=== PATIENT | female | born 1985 | race Caucasian/White ===

== ENCOUNTER 2016-10-22 20:43 | Emergency (ER) | payer OTHER ==
[~2016-10-22] VITALS: Ht 154.9 cm; Wt 56.7 kg
[~2016-10-22 20:43] MED LIST: AMOXIL500 MG PO; BACTRIM DS 8001 TAB PO; BENTYL 20 MG TA20 MG PO; CICLODAN90 GM TOP; CIPROFLOXACIN500 MG PO; CITRATE OF1.75 GM/31 PO; CLEOCIN HCL300 MG PO; CYCLOBENZAPRINE10 M1 PO; CYCLOBENZAPRINE5 M2 PO; DEPAKOTE ER250 M1 PO; DIVALPROEX SOD250 M1 PO; DOLOBID500 MG PO; DULCOLAX5 MG PO; FLEXERIL10 MG PO; FLUOXETINE10 MG PO; IBUPROFEN600 MG PO; MEDROL4 MG PO; MELATONIN5 M2 PO; MINIVELLE TOP; MOBIC 15MG15 MG PO; NEURONTIN300 M1 PO; NORETHINDRONE AC5 MG PO; OLANZAPINE5 MG PO; OXYCODONE HCL10 M2 PO; OXYCODONE HCL15 MG PO; OXYCODONE HCL5 M1 PO; OXYCODONE HCL5 M2 PO; OXYCODONE5 M1 PO; OXYCODONE5 MG PO; PERCOCET 325 MG1 TA2 PO; PERCOCET 5-3251 EACH PO; PRILOSEC OTC20 M1 PO; PROAIR HFA8.5 GM INH; REGLAN10 MG PO; TRAMADOL HCL50 M1 PO; ULTRACET 325 MG1 TAB PO; ULTRAM(MONOGRAP50 MG PO; VITAMIN D50000 IU PO; VIVELLE-DOT1 EAC2 TOP; ZOFRAN 4 MG TABL4 MG PO; ZOFRAN ODT4 M1 SL; ZOFRAN ODT4 MG PO; ZOFRAN4 M1 PO; ZOFRAN4 M1 SL
[2016-10-22 21:24] LABS: ABSOLUTE BASOPHIL COUNT 0.1 /CUMM (0.0-0.2); ABSOLUTE EOSINOPHIL COUNT 0.3 /CUMM (0.0-0.7); ABSOLUTE GRANULOCYTE CT 4.8 /CUMM (1.4-6.5); ABSOLUTE LYMPH COUNT 5.7 /CUMM (1.2-3.4); ABSOLUTE MONOCYTE COUNT 0.6 /CUMM (0.10-0.60); BASOPHIL % 0.9 % (0.0-2.0); EOSINOPHIL % 2.7 % (0-5); GRANULOCYTE % 41.3 % (42.2-75.2); HEMATOCRIT 44.9 % (37-47); MEAN CORPUSCULAR HGB 29.4 PG (27.0-31.0); MEAN CORPUSCULAR HGB CONC 33.4 G/DL (33.0-37.0); MEAN CORPUSCULAR VOLUME 87.9 FL (81.0-99.0); MEAN PLATELET VOLUME 7.9 FL (7.4-10.4); PLATELET COUNT 316 /CUMM (130-400); RBC DISTRIBUTION WIDTH 13.9 % (11.5-14.5); RED BLOOD CELL CT 5.11 /CUMM (4.20-5.40); WHITE BLOOD CELL COUNT 11.5 /CUMM (4.8-10.8)
--- NOTE | 2016-10-23 00:09 | ED GI/GU/ABDOMINAL COMPLAINT ---
History of Present Illness General Chief Complaint: General Adult Stated Complaint: RIGHT SIDE PAIN THAT RADIATES TO BACK PER PT Source: patient Exam Limitations: no limitations Vital Signs & Intake/Output Vital Signs & Intake/Output Vital Signs Date Time Temp Pulse Resp B/P Pulse O2 O2 Flow FiO2 Ox Delivery Rate 10/23 0332 97.2 68 18 104/56 98 Room Air 10/22 2103 97.0 71 18 101/70 98 Room Air ED Intake and Output 10/23 0000 10/22 1200 Intake Total Output Total Balance Patient 125 lb Weight Allergies Coded Allergies: amoxicillin (Severe, FACIAL SWELLING 05/03/16) acetaminophen (Intermediate, VOMITING 05/03/16) hydrocodone (From Vicodin) (Severe, HOMICIDAL 05/03/16) quetiapine (From Seroquel) (Severe, HALLUCINATIONS POSITIVE SI 05/03/16) ibuprofen (VOMITING 05/03/16) Uncoded Allergies: ONION EXTRACT (Severe, ANAPHLACTIC SHOCK 12/23/15) UNKNOWN CONTROL (Severe, HIVES 06/02/12) Reconcile Medications Albuterol Sulfate (Proair Hfa) 8.5 GM HFA.AER.AD 2 PUFF INH Q4-6 PRN ASTHMA Divalproex Sodium (Depakote ER) 250 MG TAB.ER.24H 1 TAB PO TID SEIZURES/MENTAL HEALTH (Reported) Estradiol (Vivelle-Dot) 1 EACH PATCH.TDSW 1 PATCH TOP 2XW HRT (Reported) Gabapentin (Neurontin) 300 MG CAPSULE 1 CAP PO BID SEIZURES/MENTAL HEALTH ( Reported) Omeprazole Magnesium (Prilosec Otc) 20 MG TABLET.DR 1 TAB PO DAILY STOMACH UPSET Ondansetron (Zofran Odt) 4 MG TAB.RAPDIS 1 TAB SL TID PRN NAUSEA Oxycodone HCl 5 MG TABLET 1 TAB PO BIDP PRN pain Oxycodone HCl 5 MG TABLET 1-2 TAB PO Q6P PRN pain Oxycodone HCl 5 MG TABLET 1-2 TAB PO TID PRN PAIN TEN...[id number] Triage Note: PT TO ED FOR EXACERBATION OF CHRONIC ABD PAIN, REPORTING WORSENING RLQ ABD PAIN THAT BEGAN "A FEW HOURS AGO", REPORTING NAUSEA WELL. Triage Nurses Notes Reviewed? yes ? n Is pt currently ? No Duration: hour(s): Timing: single episode today Quality/Severity: cramping Location: right lower quadrant, right flank pain Radiation: flank Activities at Onset: none Modifying Factors: Worsens With: movement, palpation. Associated Symptoms: abdominal pain, back pain HPI: 31 yo woman h/o endometriosis presents with right back pain and right lower quadrant pain that began this afternoon. She notes no dysuria, vaginal bleeding, hematuria. She has mild nausea, but no vomiting or diarrhea. She notes that she has been trying to get into a pain management clinic for her endometriosis. She is otherwise well. Past History Travel History Traveled to [place] past 21 day No Medical History Any Pertinent Medical History? 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 No Review of Systems Review of Systems Constitutional: Reports: no symptoms. EENTM: Reports: no symptoms. Respiratory: Reports: no symptoms. Cardiovascular: Reports: no symptoms. GI: Reports: no symptoms. Genitourinary: Reports: no symptoms. Musculoskeletal: Reports: no symptoms. Skin: Reports: no symptoms. Neurological/Psychological: Reports: no symptoms. Hematologic/Endocrine: Reports: no symptoms. Immunologic/Allergic: Reports: no symptoms. All Other Systems: Reviewed and Negative Physical Exam Physical Exam General Appearance: well developed/nourished, mild distress Head: atraumatic, normal appearance Eyes: Bilateral: normal appearance. Ears, Nose, Throat, Mouth: hearing grossly normal Neck: normal inspection, supple, full range of motion Respiratory: normal breath sounds, chest non-tender, no respiratory distress, quiet respiration, lungs clear Cardiovascular: regular rate/rhythm Gastrointestinal: normal bowel sounds, soft, moderate rlq tenderness to palpation. no rebound. no guarding. Back: normal inspection Extremities: normal range of motion Neurologic/Psych: no motor/sensory deficits, awake, alert, oriented x 3 Skin: intact, normal color, warm/dry Core Measures ACS in differential dx? No Severe Sepsis Present: No Septic Shock Present: No Progress Differential Diagnosis: uti vs kidney stones vs other. Plan of Care: Orders Procedure Date/time Status URINALYSIS 10/22 2046 Complete LIPASE 10/22 2046 Complete HEPATIC FUNCTION PANEL 10/22 2046 Complete HUMAN BETA HCG SCREEN 10/22 2046 Complete CBC WITHOUT DIFFERENTIAL 10/22 2046 Complete BASIC METABOLIC PANEL 10/22 2046 Complete AMYLASE 10/22 2046 Complete Laboratory Tests 10/22/162106: Anion Gap 13, Estimated GFR > 60, BUN/Creatinine Ratio 5.0 L, Glucose 80, Calcium 9.6, Total Bilirubin 0.4, Direct Bilirubin 0.4, AST 15, ALT 16, Alkaline Phosphatase 62, Total Protein 7.6, Albumin 4.6, Amylase 75, Lipase 42, Total Beta HCG NEGATIVE, CBC w Diff NO MAN DIFF REQ, RBC 5.11, MCV 87.9, MCH 29.4, RDW 13.9, MPV 7.9, Gran % 41.3 L, Lymphocytes % 49.7, Monocytes % 5.4, Eosinophils % 2.7, Basophils % 0.9, Absolute Granulocytes 4.8, Absolute Lymphocytes 5.7 H, Absolute Monocytes 0.6, Absolute Eosinophils 0.3, Absolute Basophils 0.1, PUBS MCHC 33.4, Urine Color YEL, Urine Clarity CLEAR, Urine pH 6.0, Ur Specific [place] <= 1.005, Urine Protein NEG, Urine Ketones NEG, Urine Nitrite NEG, Urine Bilirubin NEG, Urine Urobilinogen 0.2, Ur Leukocyte Esterase TRACE H, Ur Microscopic SEDIMENT EXAMINED, Urine WBC 3-5 H, Ur Epithelial Cells RARE, Urine Hemoglobin NEG, Urine Glucose NEG Diagnostic Imaging: Viewed by Me: CT Scan. Discussed w/RAD: CT Scan. Radiology Impression: ABD/PELVIC CT... NO ACUTE DISEASE Initial ED EKG: none Comments: PATIENT: TANJA AMEZCUA PRESENT AGE: 31 PATIENT ACCOUNT NO: [id number] : 83 LOCATION: [facility] ORDERING PHYSICIAN: HERBERTH SELF MD SERVICE DATE: 10/23/16 EXAM TYPE: CAT - CT ABD & PELVIS W/O IV CONTRAS EXAMINATION: CT ABDOMEN AND PELVIS WITHOUT CONTRAST CLINICAL INFORMATION: Right lower quadrant pain. COMPARISON: 09/22/2016 TECHNIQUE: Multidetector volumetric imaging was performed from the superior aspect of the liver through the pubic symphysis. Sagittal and coronal reformatted images were obtained on the technologist's workstation. DLP: 274.5 mGy-cm. FINDINGS: LUNG BASES: The visualized lung bases are unremarkable. LIVER, GALLBLADDER, AND BILIARY TREE: The liver is normal in size, shape, and attenuation. No focal hepatic lesion or biliary ductal dilatation is present. Gallbladder is collapsed and unremarkable. PANCREAS: Unremarkable. SPLEEN: Unremarkable. ADRENAL GLANDS: Unremarkable. KIDNEYS AND URETERS: The kidneys are normal in size, shape, and attenuation. No hydronephrosis, hydroureter, or calculi seen. No perinephric stranding. BLADDER: Unremarkable. GASTROINTESTINAL TRACT: Stomach, small bowel, and colon are normal in caliber. Bowel is normal in wall thickness without surrounding inflammatory fat stranding. Appendix is normal. No intraperitoneal fluid or free air. ABDOMINAL WALL: No significant hernia is appreciated. LYMPH NODES: Multiple subcentimeter mesenteric and retroperitoneal lymph nodes are identified. No pathologic adenopathy. VASCULAR: Unremarkable. PELVIC VISCERA: Uterus and ovaries are not identified, likely surgically absent. OSSEOUS STRUCTURES: Minimal degenerative arthritis in the right hip. Lumbar spine is well preserved. IMPRESSION: No acute intra-abdominal or intrapelvic abnormalities. Normal appendix. DICTATED BY: BAILEY HERNADEZ MD DATE/TIME DICTATED:10/23/16223 PRODUCTION COST ESTIMATOR:ROBERT DATE/TIME TRANSCRIBED:10/23/16223 CONFIDENTIAL, DO NOT COPY WITHOUT APPROPRIATE AUTHORIZATION. <Electronically signed in Other Vendor System> SIGNED BY: BAILEY HERNADEZ MD 10/23/16233 Departure Departure Disposition: HOME OR SELF CARE Condition: Stable Clinical Impression Primary Impression: Abdominal pain Secondary Impressions: Endometriosis Referrals: RAFITA MARCELO-NEFTALY,ILSA Aguilera (PCP/Family) Departure Forms: Customer Survey General Discharge Information Prescriptions: Current Visit Scripts Oxycodone HCl 1-2 TAB PO TID PRN PAIN #10 TAB TEN...[id number] Comments pt resting comfortably on stretcher at discharge... pt safe for discharge with close follow up. pt will follow up with her ob-home builder.
--- NOTE | 2016-10-23 02:34 | CT SCAN REPORT ---
EXAMINATION: CT ABDOMEN AND PELVIS WITHOUT CONTRAST CLINICAL INFORMATION: Right lower quadrant pain. COMPARISON: 09/22/2016 TECHNIQUE: Multidetector volumetric imaging was performed from the superior aspect of the liver through the pubic symphysis. Sagittal and coronal reformatted images were obtained on the technologist's workstation. DLP: 274.5 mGy-cm. FINDINGS: LUNG BASES: The visualized lung bases are unremarkable. LIVER, GALLBLADDER, AND BILIARY TREE: The liver is normal in size, shape, and attenuation. No focal hepatic lesion or biliary ductal dilatation is present. Gallbladder is collapsed and unremarkable. PANCREAS: Unremarkable. SPLEEN: Unremarkable. ADRENAL GLANDS: Unremarkable. KIDNEYS AND URETERS: The kidneys are normal in size, shape, and attenuation. No hydronephrosis, hydroureter, or calculi seen. No perinephric stranding. BLADDER: Unremarkable. GASTROINTESTINAL TRACT: Stomach, small bowel, and colon are normal in caliber. Bowel is normal in wall thickness without surrounding inflammatory fat stranding. Appendix is normal. No intraperitoneal fluid or free air. ABDOMINAL WALL: No significant hernia is appreciated. LYMPH NODES: Multiple subcentimeter mesenteric and retroperitoneal lymph nodes are identified. No pathologic adenopathy. VASCULAR: Unremarkable. PELVIC VISCERA: Uterus and ovaries are not identified, likely surgically absent. OSSEOUS STRUCTURES: Minimal degenerative arthritis in the right hip. Lumbar spine is well preserved. IMPRESSION: No acute intra-abdominal or intrapelvic abnormalities. Normal appendix.
[2016-10-23] MEDS ORDERED: OXYCODONE HCL5 M1 PO (03:19)
[2016-10-23 03:32] VITALS: BP 104/56
== END 2016-10-23 03:33 ==
LOC: ERH 20:43
PROVIDERS: Pediatrics
DX: N80.9 Endometriosis, unspecified (principal)
CPT/HCPCS: 74176; 81001; 96372; J1885; J3101

== ENCOUNTER 2016-12-17 18:43 | Emergency (ER) | payer OTHER ==
[~2016-12-17] VITALS: Ht 154.9 cm; Wt 54.4 kg
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
[2016-12-17 19:53] LABS: ABSOLUTE BASOPHIL COUNT 0.1 /CUMM (0.0-0.2); ABSOLUTE EOSINOPHIL COUNT 0.2 /CUMM (0.0-0.7); ABSOLUTE GRANULOCYTE CT 3.1 /CUMM (1.4-6.5); ABSOLUTE LYMPH COUNT 4.3 /CUMM (1.2-3.4); ABSOLUTE MONOCYTE COUNT 0.5 /CUMM (0.10-0.60); BASOPHIL % 0.9 % (0.0-2.0); EOSINOPHIL % 2.2 % (0-5); GRANULOCYTE % 38.1 % (42.2-75.2); HEMATOCRIT 41.9 % (37-47); MEAN CORPUSCULAR HGB 29.4 PG (27.0-31.0); MEAN CORPUSCULAR HGB CONC 33.7 G/DL (33.0-37.0); MEAN CORPUSCULAR VOLUME 87.2 FL (81.0-99.0); MEAN PLATELET VOLUME 7.7 FL (7.4-10.4); PLATELET COUNT 276 /CUMM (130-400); RBC DISTRIBUTION WIDTH 13.5 % (11.5-14.5); RED BLOOD CELL CT 4.81 /CUMM (4.20-5.40); WHITE BLOOD CELL COUNT 8.1 /CUMM (4.8-10.8)
--- NOTE | 2016-12-17 21:45 | CT SCAN REPORT ---
EXAMINATION: CT ABDOMEN AND PELVIS WITHOUT CONTRAST CLINICAL INFORMATION: Right lower quadrant pain. COMPARISON: CT of abdomen pelvis from 12/23/2015, 09/22/2016 and 10/23/2016. TECHNIQUE: Multidetector volumetric imaging was performed from the superior aspect of the liver through the pubic symphysis. Sagittal and coronal reformatted images were obtained on the technologist's workstation. DLP: 248 mGy-cm FINDINGS: LUNG BASES: No acute findings in the visualized lung bases. LIVER, GALLBLADDER, AND BILIARY TREE: Liver has normal size, contour and attenuation. No focal hepatic lesion or intrahepatic bile duct dilatation. Gallbladder is unremarkable; no evidence of cholelithiasis or pericholecystic inflammatory change. PANCREAS: Unremarkable. SPLEEN: Unremarkable. ADRENAL GLANDS: Unremarkable. KIDNEYS AND URETERS: The kidneys are normal in size, shape, and attenuation. No hydronephrosis, hydroureter, or calculi seen. No perinephric stranding. BLADDER: Unremarkable. GASTROINTESTINAL TRACT: Stomach and bowel are unremarkable. Appendix is normal. No evidence of acute inflammation or obstruction along the gastrointestinal tract. ABDOMINAL WALL: Unremarkable. LYMPH NODES: No lymphadenopathy within the abdomen or pelvis. Subcentimeter sized lymph nodes within the right mesentery measure up to 0.7 cm short axis dimension and are unchanged compared to 12/23/2015. There is no inflammation within the mesentery. VASCULAR: Abdominal aorta is normal in caliber. No retroperitoneal hematoma. PELVIC VISCERA: The uterus appears surgically absent. No adnexal masses or pelvic free fluid. OSSEOUS STRUCTURES: No significant osseous findings. IMPRESSION: No acute imaging abnormality in the abdomen or pelvis.
[2016-12-17] MEDS ORDERED: ZOFRAN ODT4 M1 SL (23:10)
[2016-12-17] MEDS ORDERED: OXYCODONE HCL5 M1 PO (23:10)
[2016-12-17] MEDS ORDERED: BACTRIM DS TAB1 EACH PO (23:10)
[2016-12-17 23:20] VITALS: BP 121/72
== END 2016-12-17 23:32 ==
LOC: ERH 18:43
PROVIDERS: Pediatrics
DX: R10.31 Right lower quadrant pain (principal)
CPT/HCPCS: 74176; 81001; 96374; 96375; J1885; J2405

== ENCOUNTER 2016-12-30 17:28 | Emergency (ER) | payer OTHER ==
[~2016-12-30] VITALS: Ht 154.9 cm; Wt 56.7 kg
[~2016-12-30 17:28] MED LIST changes: +BACTRIM DS TAB1 EACH PO
--- NOTE | 2016-12-30 18:41 | RADIOLOGY REPORT ---
EXAMINATION: XR KNEE, LEFT CLINICAL INFORMATION: Sprain with pain. COMPARISON: None TECHNIQUE: Four views of the left knee. FINDINGS: No acute fracture or dislocation is seen. The joint spaces are maintained. The soft tissues are unremarkable. No joint effusion is seen. IMPRESSION: Normal plain film evaluation of the left knee.
--- NOTE | 2016-12-30 19:42 | ED UPPER/LOWER EXTREMITY COMPL ---
History of Present Illness General Chief Complaint: Lower Extremity Problems Stated Complaint: KNEE PAIN Source: patient, old records Exam Limitations: no limitations Vital Signs & Intake/Output Vital Signs & Intake/Output Vital Signs Date Time Temp Pulse Resp B/P Pulse O2 O2 Flow FiO2 Ox Delivery Rate 12/30 2016 98.1 78 16 110/85 98 12/30 1746 97.0 80 20 106/74 Allergies Coded Allergies: amoxicillin (Severe, FACIAL SWELLING 12/17/16) acetaminophen (Intermediate, VOMITING 12/17/16) hydrocodone (From Vicodin) (Severe, HOMICIDAL 12/17/16) quetiapine (From Seroquel) (Severe, HALLUCINATIONS POSITIVE SI 12/17/16) ibuprofen (VOMITING 12/17/16) Uncoded Allergies: ONION EXTRACT (Severe, ANAPHLACTIC SHOCK 12/23/15) UNKNOWN CONTROL (Severe, HIVES 06/02/12) Reconcile Medications Albuterol Sulfate (Proair Hfa) 8.5 GM HFA.AER.AD 2 PUFF INH Q4-6 PRN ASTHMA Divalproex Sodium (Depakote ER) 250 MG TAB.ER.24H 1 TAB PO TID SEIZURES/MENTAL HEALTH (Reported) Estradiol (Vivelle-Dot) 1 EACH PATCH.TDSW 1 PATCH TOP 2XW HRT (Reported) Gabapentin (Neurontin) 300 MG CAPSULE 1 CAP PO BID SEIZURES/MENTAL HEALTH ( Reported) Meloxicam (Mobic) 7.5 MG TABLET 1-2 TAB PO DAILY PRN pain Oxycodone HCl 5 MG TABLET 1 TAB PO Q6PRN PRN severe pain Triage Note: PER PT SAW CHIROPRACTOR TODAY AND PER PT THEY WANT HER TO HAVE XR RT KNEE, Tuesday L KNEE GAVE OUT AND USING ALL WT ON L KNEE NOW L KNEE PAINFUL. HX OF HYSTERECTOMY. Triage Nurses Notes Reviewed? yes Onset: yesterday Duration: hour(s):, constant, continues in ED Timing: recent history Severity: moderate Pain/Injury Location: Bilateral: Knee. Method of Injury: direct blow, fall Modifying Factors: Improves With: rest. Worsens With: movement. Associated Symptoms: GCS 15 since, stiffness LMP (ages 10-50): unknown : No Patient currently breastfeeds: No HPI: 1 day prior to admission patient reports right knee buckled causing her to lose balance and striking both knees against a door. She complains of bruising moderate to severe pain with weightbearing difficulty ambulating. She denies fever chills nausea vomiting diarrhea abdominal pain chest pain shortness breath headache dysuria rash bleeding. 2 days prior to admission she reports having generalized seizure without injury. Past History Travel History Traveled to [place] past 21 day No Medical History Any Pertinent Medical History? 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 No Review of Systems Review of Systems Constitutional: Reports: no symptoms. EENTM: Reports: no symptoms. Respiratory: Reports: no symptoms. Cardiovascular: Reports: no symptoms. Gastrointestinal/Abdominal: Reports: no symptoms. Genitourinary: Reports: no symptoms. Musculoskeletal: Reports: see HPI, joint pain. Skin: Reports: no symptoms. Neurological/Psychological: Reports: see HPI, tonic-clonic seizures. Hematologic/Endocrine: Reports: no symptoms. Immunological: Reports: no symptoms. All Other Systems: Reviewed and Negative Physical Exam Physical Exam General Appearance: well developed/nourished, alert, awake, anxious, mild distress Head: atraumatic, normal appearance Eyes: Bilateral: normal appearance, PERRL, EOMI. Ears, Nose, Throat: normal pharynx, normal ENT inspection, hearing grossly normal, moist mucus membranes Neck: normal inspection, supple, full range of motion, no midline tenderness Cardiovascular/Respiratory: normal breath sounds, normal peripheral pulses, regular rate/rhythm, no respiratory distress Peripheral Pulses: 4+ carotid (R), 4+ carotid (L) Back: normal inspection, normal range of motion, no vertebral tenderness Shoulder Left: normal range of motion, normal inspection Shoulder Right: normal range of motion, normal inspection Elbow Left: normal range of motion, normal inspection Elbow Right: normal range of motion, normal inspection Hand Left: normal inspection, normal range of motion Hand Right: normal inspection, normal range of motion Upper Extremity Reflexes: 2+: bicep (R), bicep (L). Leg Left: normal range of motion, tenderness, pain, soft tissue tenderness, bruising below patella Leg Right: normal range of motion, tenderness, pain, soft tissue tenderness, bruising medially to knee Hip Left: normal range of motion, normal inspection Hip Right: normal range of motion, normal inspection Knee Left: tenderness, ecchymosis, soft tissue tenderness, limited range of motion Knee Right: normal range of motion, ecchymosis, soft tissue tenderness Foot Left: normal inspection, normal range of motion Foot Right: normal inspection, normal range of motion Lower Extremity Reflexes: 2+: ankle (R), ankle (L). Neurologic/Tendon: normal sensation, normal motor functions, normal tendon functions Skin: intact, normal color, warm/dry Lymphatic: no anterior cervical lindsey Progress Differential Diagnosis: contusion, fracture Plan of Care: crutches Diagnostic Imaging: Viewed by Me: Radiology Read. Discussed w/RAD: Radiology Read. Radiology Impression: no acute abnormality, no fracture, no dislocation Departure Departure Time of Disposition: 1939 Disposition: HOME OR SELF CARE Condition: Stable Clinical Impression Primary Impression: Contusion, knee and lower leg Qualifiers: Encounter type: initial encounter Laterality: left Qualified Codes: S80.02XA - Contusion of left knee, initial encounter; S80.12XA - Contusion of left lower leg, initial encounter Secondary Impressions: Contusion of knee, right Qualifiers: Encounter type: initial encounter Qualified Code: S80.01XA - Contusion of right knee, initial encounter Fall at home Qualifiers: Encounter type: initial encounter Qualified Codes: W19.XXXA - Unspecified fall, initial encounter; Y92.099 - Unspecified place in other non- institutional residence as the place of occurrence of the external cause Referrals: RAFITA MARCELO-BC,ILSA Aguilera (PCP/Family) ANNA SIMS,SWETHA Bedolla Call for orthopedic follow up Departure Forms: Customer Survey General Discharge Information RELEASE- WORK Prescriptions: Current Visit Scripts Meloxicam (Mobic) 1-2 TAB PO DAILY PRN pain #30 TAB Oxycodone HCl 1 TAB PO Q6PRN PRN severe pain #10 TAB
[2016-12-30] MEDS ORDERED: MOBIC7.5 M1 PO (19:45)
[2016-12-30] MEDS ORDERED: OXYCODONE HCL5 M1 PO (19:46)
[2016-12-30 20:17] VITALS: BP 110/85
== END 2016-12-30 20:18 ==
LOC: ERH 17:28
DX: S80.01XA Contusion of right knee, initial encounter (principal); S80.02XA Contusion of left knee, initial encounter; S80.12XA Contusion of left lower leg, initial encounter; W19.XXXA Unspecified fall, initial encounter; Y93.9 Activity, unspecified; Y92.009 Unspecified place in unspecified non-institutional (private) residence as the place of occurrence of the external cause
CPT/HCPCS: 73562-LT

== ENCOUNTER 2017-01-27 17:31 | Emergency (ER) | payer OTHER ==
[~2017-01-27] VITALS: Ht 154.9 cm; Wt 56.7 kg
[~2017-01-27 17:31] MED LIST changes: +MOBIC7.5 M1 PO
[2017-01-27 17:38] VITALS: BP 108/71
--- NOTE | 2017-01-27 18:27 | RADIOLOGY REPORT ---
EXAMINATION: XR KNEE, LEFT CLINICAL INFORMATION: Fall. COMPARISON: Left knee 07/06/2016 TECHNIQUE: Four views of the left knee. FINDINGS: Bones and soft tissues are normal. No fracture or joint effusion. Alignment is anatomic. Joint spaces are well maintained. No abnormal soft tissue calcification. IMPRESSION: Normal left knee.
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
[2017-01-27] MEDS ORDERED: MOBIC15 M1 PO (19:37)
[2017-01-27] MEDS ORDERED: OXYCODONE HCL5 M2 PO (19:58)
== END 2017-01-27 20:02 ==
LOC: ERH 17:31
DX: S80.02XA Contusion of left knee, initial encounter (principal); W19.XXXA Unspecified fall, initial encounter; Y93.9 Activity, unspecified; Y92.9 Unspecified place or not applicable
CPT/HCPCS: 73562-LT

== ENCOUNTER 2017-01-29 13:43 | Emergency (ER) | payer OTHER ==
[~2017-01-29] VITALS: Ht 154.9 cm; Wt 56.7 kg
[~2017-01-29 13:43] MED LIST changes: +MOBIC15 M1 PO
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
[2017-01-29] MEDS ORDERED: VAGIFEM10 MC1 PO (15:33)
--- NOTE | 2017-01-29 15:35 | RADIOLOGY REPORT ---
EXAMINATION: XR KNEE, LEFT CLINICAL INFORMATION: Left knee pain status post fall. Presumptive diagnosis of fracture. COMPARISON: Left knee films dated 01/27/2017. TECHNIQUE: Four views of the left knee. FINDINGS: Bones and soft tissues are normal. No fracture or joint effusion. Alignment is anatomic. Joint spaces are well maintained. No abnormal soft tissue calcification. IMPRESSION: Normal left knee.
[2017-01-29 16:00] VITALS: BP 112/71
--- NOTE | 2017-01-30 14:07 | ULTRASOUND REPORT ---
EXAMINATION: NONINVASIVE ASSESSMENT OF THE ARTERIES OF THE LEFT LOWER EXTREMITY INTERPRETING VASCULAR \T\ INTERVENTIONAL RADIOLOGIST: Adalid Nava MD CLINICAL INFORMATION: Cool left leg TECHNIQUE: Left-sided lower extremity duplex ultrasound was performed with velocity measurements and waveform analysis in the common femoral artery, profunda femoris artery, proximal mid and distal superficial femoral arteries, popliteal artery and tibial vessels. This study was performed only at rest. COMPARISON: None FINDINGS: velocities in cm/sec and phasicity as well as the presence of plaque are reported below LEFT LEG: common femoral: 150 profunda femoris: 101 proximal SFA: 103 mid SFA: 106 distal SFA: 114 popliteal: 111 tibial: 35, 57 and 18 No plaque is seen. Multiphasic flow is seen throughout IMPRESSION: There is no evidence of any hemodynamically significant left leg lower extremity arterial disease by pressure, waveform or duplex Doppler criteria at rest. This critical result was discussed with the physician in the ER at [facility] shortly after the exam and it was ascertained that the content of the report was understood at the time of direct communication.
== END 2017-01-29 19:05 ==
LOC: ERH 13:43
DX: M25.562 Pain in left knee (principal)
CPT/HCPCS: 73562-LT

== ENCOUNTER 2018-03-12 15:14 | Emergency (ER) | payer OTHER ==
[~2018-03-12] VITALS: Ht 154.9 cm; Wt 59.4 kg
[~2018-03-12 15:14] MED LIST changes: +BACLOFEN20 M1 PO; +DOXYCYCLINE HY100 M4 PO; +ESTRADIOL1 EAC7 TOP; +ROXICODONE5 M1 PO; +TESSALON PERLE100 M1 PO; +VAGIFEM10 MC1 PO; +VENTOLIN HFA18 GM INH; +ZITHROMAX500 M2 PO
--- NOTE | 2018-03-12 17:37 | ED GENERAL ADULT ---
History of Present Illness General Chief Complaint: General Adult Stated Complaint: "IM HAVING ISSUES FROM SURGERY ON TUESDAY" Source: patient Exam Limitations: no limitations Vital Signs & Intake/Output Vital Signs & Intake/Output Vital Signs Date Time Temp Pulse Resp B/P B/P Pulse O2 O2 Flow FiO2 Mean Ox Delivery Rate 03/12 1755 97.7 88 18 118/76 98 Room Air 03/12 1754 97 03/12 1526 97.1 82 18 120/86 98 Room Air ED Intake and Output 03/13 0000 03/12 1200 Intake Total 120 Output Total Balance 120 Intake, Oral 120 Patient 131 lb Weight Allergies Coded Allergies: amoxicillin (Severe, FACIAL SWELLING 12/17/16) acetaminophen (Intermediate, VOMITING 12/17/16) hydrocodone (From Vicodin) (Severe, HOMICIDAL 12/17/16) quetiapine (From Seroquel) (Severe, HALLUCINATIONS POSITIVE SI 12/17/16) ibuprofen (VOMITING 12/17/16) Uncoded Allergies: ONION EXTRACT (Severe, ANAPHLACTIC SHOCK 12/23/15) UNKNOWN CONTROL (Severe, HIVES 06/02/12) Reconcile Medications Albuterol Sulfate (Ventolin Hfa) 90 MCG HFA.AER.AD 2 PUF INH Q4-6 PRN PRN SHORTNESS OF BREATH Azithromycin (Zithromax) 500 MG TABLET 1 TAB PO DAILY URI Baclofen 20 MG TABLET 1 TAB PO TID PRN pain Benzonatate (Tessalon Perle) 100 MG CAPSULE 1 CAP PO TID PRN COUGH Divalproex Sodium (Depakote ER) 250 MG TAB.ER.24H 1 TAB PO TID SEIZURES/MENTAL HEALTH (Reported) Doxycycline Hyclate 100 MG TABLET 1 TAB PO BID cervicitis Estradiol (Vagifem) 10 MCG TABLET 1 TAB PO DAILY HORMONE (Reported) Estradiol 0.1 MG/24 HOUR PATCH.TDWK 1 PATCH TOP 2XW HRT (Reported) Gabapentin (Neurontin) 300 MG CAPSULE 1 CAP PO BID SEIZURES/MENTAL HEALTH ( Reported) Ondansetron (Zofran Odt) 4 MG TAB.RAPDIS 1 TAB SL TID PRN nausea Oxycodone HCl 5 MG TABLET 1 TAB PO BIDP PRN SEVERE PAIN Oxycodone HCl 5 MG CAPSULE 1 CAP PO BID PRN PAIN Oxycodone HCl 5 MG CAPSULE 1 CAP PO TID PRN PAIN Oxycodone HCl 5 MG TABLET 1-2 TAB PO Q6P PRN severe pain Oxycodone HCl 5 MG TABLET 1 TAB PO BIDP PRN pain Oxycodone HCl (Roxicodone) 5 MG TABLET 1 TAB PO BID PRN PAIN Oxycodone HCl/Acetaminophen (Percocet 5-325 MG Tablet) 5 MG-325 MG TABLET 1 TAB PO BID PRN pain Sulfamethoxazole/Trimethoprim (Bactrim Ds Tablet) 800 MG-160 MG TABLET 1 TAB PO BID CELLULITIS/ABSCESS Triage Note: PT REQUESTING PAIN MEDS TO HOLD HER OVER INTILL SHE CAN SEE HER SURGEON TUESDAY WAS SEEN HERE A COUPLE OF DAYS AGO FOR THE SAME Triage Nurses Notes Reviewed? yes : No Patient currently breastfeeds: No HPI: 32-year-old patient presented to the emergency department reporting that 4 days ago on Tuesday she had surgery for removal of expanders due to her body "rejecting them". This was after she had bilateral mastectomy for BRCA2 gene. No personal history of cancer. She reports that this was performed at [facility] in [place] by Dr. Maza, plastic surgeon. She states that she was supposed to follow-up with him however has been unable to reach their office. She presents today requesting pain medication. She states she had been taking oxycodone 5 mg as prescribed, however the pain continues in the emergency department. She denies any fever, chills, nausea, vomiting, diarrhea. She states she is going to follow-up with Tuesday for postop visit. (Gilda Montiel) Past History Travel History Traveled to [place] past 21 day No Medical History Any Pertinent Medical History? see below for history Neurological: seizure EENT: NONE Cardiovascular: NONE Respiratory: asthma Gastrointestinal: NONE Hepatic: NONE Renal: NONE Musculoskeletal: NONE Psychiatric: bipolar disease, depression, schizophrenia, OCD Endocrine: NONE Blood Disorders: NONE Cancer(s): BRCA2 gene, no personal history of cancer MANAGER REVENUE/Reproductive: ENDOMETRIOSIS OVARIAN CYSTS History of CDIFF: No Surgical History Surgical History: hysterectomy, multiple laprascopic abd surgeries (22 SURGERIES ) ALL TEETH REMOVED Psychosocial History What is your primary language Khmer Tobacco Use: Never used ETOH Use: denies use Illicit Drug Use: denies illicit drug use Family History Hx Contributory? No (Gilda Montiel) Review of Systems Review of Systems Constitutional: Reports: no symptoms. EENTM: Reports: no symptoms. Respiratory: Reports: no symptoms. Cardiovascular: Reports: no symptoms. GI: Reports: no symptoms. Genitourinary: Reports: no symptoms. Musculoskeletal: Reports: see HPI. Skin: Reports: no symptoms. Neurological/Psychological: Reports: no symptoms. Hematologic/Endocrine: Reports: no symptoms. Immunologic/Allergic: Reports: no symptoms. All Other Systems: Reviewed and Negative (Gilda Montiel) Physical Exam Physical Exam General Appearance: well developed/nourished, no apparent distress, alert, awake , mild distress Head: atraumatic, normal appearance Eyes: Bilateral: normal appearance. Ears, Nose, Throat: hearing grossly normal Neck: normal inspection, full range of motion Respiratory: normal breath sounds, no respiratory distress Cardiovascular: regular rate/rhythm Gastrointestinal: soft, non-tender Back: normal inspection, normal range of motion Extremities: normal inspection, normal range of motion Neurologic/Psych: no motor/sensory deficits, awake, alert, oriented x 3, normal mood/affect Skin: intact, normal color, warm/dry Comments: Bilateral mastectomy wounds healing well, [address] (one each side) with roughly 15ccs serosanguinous fluid. Areas surrounding the wound sites are tender to touch. Clean/dry/in tact. Core Measures ACS in differential dx? No CVA/TIA Diagnosis: No Sepsis Present: No Sepsis Focused Exam Completed? No (Gilda Montiel) Progress Differential Diagnoses I considered the following diagnoses in my evaluation of the patient: [infection , post-operative pain] Plan of Care: Current Medications Sig/Armando Start time Last Medication Dose Stop Time Status Admin Oxycodone HCl 5 MG ONCE ONE 03/12 1745 UNVr (Roxicodone) 03/12 1746 Initial ED EKG: none (Gilda Montiel) Departure Departure Disposition: HOME OR SELF CARE Condition: Stable Clinical Impression Primary Impression: Post-mastectomy pain Referrals: Tristan SIMS,Dickson Magallanes (PCP/Family) Additional Instructions: Take pain medication as prescribed. Follow-up with plastic surgeon on Tuesday of this week. Return to the emergency department with worsening symptoms or other concerns. Departure Forms: Customer Survey General Discharge Information Prescriptions: Current Visit Scripts Oxycodone HCl 1-2 TAB PO Q6P PRN severe pain #15 TAB Comments 32-year-old female presented to the emergency department status post mastectomy status post removal of expanders 4 days ago due to rejection of the expanders. Patient had requested pain medication and she was unable to reach her plastic surgeon. She is going to go for an appointment on this upcoming March 14. In the meantime she was prescribed oxycodone and advised to take as needed. She was advised to return to the emergency department with changes or worsening in symptoms or other concerns for her well-being. (Gilda Montiel) PA/FARM MORTGAGE AGENT Co-Sign Statement Statement: ED Attending supervision documentation- x I saw and evaluated the patient. I have also reviewed all the pertinent lab results and diagnostic results. I agree with the findings and the plan of care as documented in the PA's/FARM M[employer] AGENT's documentation. [] I have reviewed the ED Record and agree with the PA's/FARM MORTG[employer] AGENT's documentation. [] Additions or exceptions (if any) to the PAs/FARM MORTGAGE AGENT's note and plan are summarized below: [] (Anselmo SIMS,Gianfranco) Critical Care Note Critical Care Note Critical Care Time: non-applicable (Gilda Montiel)
[2018-03-12] MEDS ORDERED: OXYCODONE HCL5 M1 PO (17:38)
[2018-03-12 17:55] VITALS: BP 118/76
== END 2018-03-12 17:55 ==
LOC: ERH 15:14
DX: G89.18 Other acute postprocedural pain (principal)

== ENCOUNTER 2018-04-23 21:11 | Emergency (ER) | payer OTHER ==
[2018-04-23 21:15] VITALS: BP 164/79
--- NOTE | 2018-04-23 22:38 | RADIOLOGY REPORT ---
EXAMINATION: XR CHEST, 2 VIEWS CLINICAL INFORMATION: Pain. Rule out rib fracture. Fall. COMPARISON: 05/24/[address] dated 03/10/2016 TECHNIQUE: PA and lateral views of the chest were obtained. FINDINGS: Lungs are clear. No consolidation, pneumothorax, or pleural effusion. Cardiac and mediastinal contours are normal. Pulmonary vasculature is unremarkable. Trachea is midline. Minimal degenerative disc disease in the thoracic spine. No rib fractures are identified. IMPRESSION: No acute pulmonary findings. No rib fractures are identified.
== END 2018-04-23 23:42 | disposition admitted as inpatient to this hospital (09) ==
LOC: ERH 21:11
DX: R07.81 Pleurodynia (principal)
CPT/HCPCS: 71046; 99281